=== PATIENT | female | born 2005 | race Caucasian/White ===

== ENCOUNTER 2023-01-30 11:00 | Emergency (ER) | payer BC | END 2023-01-30 15:14 | disposition home or self-care (01) | LOC: MW.ED 11:00 | DX: N30.01 Acute cystitis with hematuria (principal) | CPT/HCPCS: 81001; 99283 ==

== ENCOUNTER 2024-06-01 20:58 | Emergency (ER) | payer OTHER, BC ==
[2024-06-01] MEDS: Acetaminophen/HYDROcodone 325-5 MG Tab PO ONE (21:52)
[2024-06-01] MEDS: Ketorolac 30 MG/ML SDV IVPUSH ONE (21:53)
[2024-06-01 22:04] LABS: APPEARANCE,URINE CLEAR; BILIRUBIN,URINE NEGATIVE (NEGATIVE); COLOR,URINE YELLOW; GLUCOSE,URINE NEGATIVE (NEGATIVE); KETONES,URINE NEGATIVE (NEGATIVE); LEUKOCYTE ESTERASE,URINE NEGATIVE (NEGATIVE); NITRITE,URINE NEGATIVE (NEGATIVE); OCCULT BLOOD,URINE NEGATIVE (NEGATIVE); PROTEIN,URINE NEGATIVE (NEGATIVE); UROBILINOGEN,URINE 0.2 EU/dL (<2.0)
== END 2024-06-01 22:40 | disposition home or self-care (01) ==
LOC: MW.ED 20:58
DX: S06.0X0A Concussion without loss of consciousness, initial encounter (principal); M54.2 Cervicalgia; M54.50 Low back pain, unspecified; Z75.8 Other problems related to medical facilities and other health care; Z88.0 Allergy status to penicillin; Z88.1 Allergy status to other antibiotic agents; V89.0XXA Person injured in unspecified motor-vehicle accident, nontraffic, initial encounter
CPT/HCPCS: 70450; 72125; 72128; 72131; 81003; 81025; 96374; 99284; A9270; J1885; 99283

== ENCOUNTER 2024-06-30 02:57 | Emergency (ER) | payer BC ==
[2024-06-30] MEDS: Sodium Chloride 0.9% 1,000 ML IV STA ×2 (03:07→03:45)
[2024-06-30] MEDS: Sodium Chloride 0.9% 10 ML Syringe FLUSH PRN (03:07)
[2024-06-30] MEDS: Sodium Chloride 0.9% 2.5 ML Syringe FLUSH PRN (03:07)
[2024-06-30] MEDS: Ondansetron 4 MG/2 ML SDV IVPUSH ONE (03:07)
[2024-06-30 03:18] LABS: BASOPHILS ABSOLUTE AUTO 0.06 K/uL (0.00-0.20); BASOPHILS PERCENT AUTO 0.4 % (0.0-1.0); HEMATOCRIT 43.5 % (37.0-47.0); HEMOGLOBIN 15.3 g/dL (12.0-16.0); IMMATURE GRAN ABSOLUTE AUTO 0.07 K/uL (0.00-0.05); IMMATURE GRAN PERCENT AUTO 0.4 % (0.0-0.4); LYMPHOCYTES PERCENT AUTO 12.8 % (24.0-44.0); MEAN CORPUSCULAR HGB CONC 35.2 g/dL (32.0-36.0); MEAN CORPUSCULAR VOLUME 88.1 fL (83.0-99.0); MEAN PLATELET VOLUME 10.6 fL (9.4-12.3); MONOCYTES ABSOLUTE AUTO 0.35 K/uL (0.00-0.80); MONOCYTES PERCENT AUTO 2.1 % (0.0-8.0); NEUTROPHILS ABSOLUTE AUTO 13.78 K/uL (1.80-7.70); NEUTROPHILS PERCENT AUTO 84.3 % (41.0-71.0); PLATELET COUNT,PLT 219 K/uL (150-400); RED BLOOD CELL COUNT 4.94 M/uL (4.10-5.30); WHITE BLOOD CELL COUNT,WBC 16.36 K/uL (3.9-11.3)
[2024-06-30 03:32] LABS: A/G RATIO 1.5 (0.9-1.6); ALANINE AMINOTRANSFERASE,ALT 60 IU/L (14-63); ALBUMIN 4.8 g/dL (3.4-5.0); ALKALINE PHOSPHATASE 63 U/L (46-116); ASPARTATE AMNIOTRANSFERASE,AST 48 IU/L (15-37); BILIRUBIN TOTAL 0.5 mg/dL (0.2-1.0); BLOOD UREA NITROGEN,BUN 10 mg/dL (7.0-18.0); CALCIUM 9.4 mg/dL (8.5-10.1); CARBON DIOXIDE,CO2 19.5 mmol/L (21.0-32.0); CHLORIDE,CL 106 mmol/L (98-107); CREATININE 0.9 mg/dL (0.6-1.0); EST CRCL DRUG DOSING (CG) 81.79 mL/min; GLUCOSE RANDOM 123 mg/dL (74-106); POTASSIUM,K 3.8 mmol/L (3.5-5.1); PROTEIN TOTAL,TP 8.1 g/dL (6.4-8.2); SODIUM,NA 142 mmol/L (136-145)
[2024-06-30 03:35] LABS: ESTIMATED GFR 93 mL/min (>60); ETHANOL BLOOD MEDICAL < 3.0 mg/dL
[2024-06-30 04:49] LABS: APPEARANCE,URINE SLT CLOUDY; BILIRUBIN,URINE NEGATIVE (NEGATIVE); COLOR,URINE YELLOW; GLUCOSE,URINE NEGATIVE (NEGATIVE); KETONES,URINE >=80 mg/dL (NEGATIVE); LEUKOCYTE ESTERASE,URINE NEGATIVE (NEGATIVE); NITRITE,URINE NEGATIVE (NEGATIVE); OCCULT BLOOD,URINE MODERATE (NEGATIVE); PROTEIN,URINE TRACE mg/dL (NEGATIVE); UROBILINOGEN,URINE 0.2 EU/dL (<2.0)
[2024-06-30 04:50] LABS: CARBON DIOXIDE,CO2 21.6 mmol/L (21.0-32.0); CREATININE 0.7 mg/dL (0.6-1.0); EST CRCL DRUG DOSING (CG) 105.16 mL/min; POTASSIUM,K 3.9 mmol/L (3.5-5.1)
[2024-06-30 04:57] LABS: WBC,URINE 0-2 (0-5/HPF)
[2024-06-30 04:58] LABS: BACTERIA,URINE RARE (NEGATIVE); EPITHELIAL CELLS,URINE FEW (NONE-FEW); MUCUS,URINE LIGHT (NONE-MOD)
== END 2024-06-30 05:22 | disposition home or self-care (01) ==
LOC: MW.ED 02:57
DX: R11.2 Nausea with vomiting, unspecified (principal); R19.7 Diarrhea, unspecified; R31.9 Hematuria, unspecified; R10.9 Unspecified abdominal pain; E87.0 Hyperosmolality and hypernatremia; Z88.0 Allergy status to penicillin; Z88.1 Allergy status to other antibiotic agents; Z75.8 Other problems related to medical facilities and other health care
CPT/HCPCS: 36415; 80048; 80053; 80307; 81001; 84703; 85025; 96361; 96374; 99284; J2405; J3490; J7030

== ENCOUNTER 2025-07-13 15:33 | Emergency (ER) | payer BC ==
[2025-07-13 15:49] LABS: APPEARANCE,URINE SLT CLOUDY; GLUCOSE,URINE NEGATIVE (NEGATIVE); OCCULT BLOOD,URINE LARGE (NEGATIVE)
[2025-07-13 15:59] LABS: EPITHELIAL CELLS,URINE RARE (NONE-FEW)
== END 2025-07-13 16:26 | disposition home or self-care (01) ==
LOC: MW.ED 15:33
DX: N39.0 Urinary tract infection, site not specified (principal); Z79.899 Other long term (current) drug therapy
CPT/HCPCS: 81001; 81025; 87086; 87088; 87186; 99283; A9270